=== PATIENT | male | born 1955 | race Caucasian/White ===

== ENCOUNTER 2017-07-19 17:17 | Inpatient (IN) | payer BC ==
[~2017-07-19] VITALS: Ht 188 cm; Wt 69.7 kg
[2017-07-19] MEDS ORDERED: ZOLOFT 50MG50 MG PO (18:39)
[2017-07-19] MEDS ORDERED: ZOVIRAX400 MG PO (18:40)
[2017-07-19] MEDS ORDERED: LEVSIN 0.10.125 MG/T PO (18:41)
[2017-07-19 19:04] LABS: BASO # 0.1 (0.0-0.2); BASO % 0.4 % (0.0-2.0); EOS % 0.1 % (0-4.0); GRAN # 11.2 (1.4-6.5); HEMATOCRIT 46.6 % (42.0-52.0); HEMOGLOBIN 15.6 g/dl (13.5-18.0); LYMPH # 0.9 (1.2-3.4); LYMPH % 6.9 % (20.0-51.0); MEAN CELL VOLUME 93 fl (80.0-100.0); MEAN CORPUSCULAR HEMOGLOBIN 31 pg (27.0-31.0); MEAN CORPUSCULAR HGB CONC 34 g/dl (33.0-37.0); MEAN PLATELET VOLUME 9.9 fl (7.4-10.4); MONO # 0.8 (0.1-0.6); MONO % 6.2 % (1.7-9.3); PLATELET COUNT 342 K/mm3 (130-400); RED BLOOD COUNT 5.01 M/mm3 (4.20-5.60); REDCELL DISTRIBUTION WIDTH-CV 12.6 % (11.5-14.5)
[2017-07-19 19:15] LABS: ALBUMIN 4.9 gm/dL (3.5-5.0); CALCIUM 9.8 mg/dL (8.4-10.2); CREATININE, serum 0.96 mg/dL (0.66-1.25); POTASSIUM 4.3 mmol/L (3.4-5.0); TOTAL PROTEIN 7.7 gm/dL (6.4-8.2)
[2017-07-19 19:24] LABS: COLLECTION METHOD CLEAN CATCH
[2017-07-19 19:34] LABS: MUCOUS Present /lpf; PH 5 (5-8); SQUAMOUS EPITHELIAL 0-2 /hpf; URINE APPEARANCE Hazy; URINE BACTERIA None Seen /hpf; URINE BILIRUBIN Negative (NEGATIVE); URINE BLOOD Negative (NEGATIVE); URINE COLOR Yellow; URINE GLUCOSE Negative (NEGATIVE); URINE KETONE 1+ (NEGATIVE); URINE LEUKOCYTE ESTERASE Negative (NEGATIVE); URINE NITRATE Negative (NEGATIVE); URINE PROTEIN(semi-quant) 2+ (NEGATIVE); URINE RBC 0-2 /hpf; URINE UROBILINOGEN Negative (NEGATIVE)
[2017-07-19 23:15] VITALS: BP 110/72; PULSE 62
[2017-07-19 23:30] VITALS: BP 122/68; PULSE 58
[2017-07-19 23:45] VITALS: BP 111/59
[2017-07-20] VITALS (10 sets, daily range): BP systolic 104–122; BP diastolic 52–73; PULSE 58–81; TEMP 98.2–98.5
[2017-07-20 06:45] LABS: HEMATOCRIT 36.4 % (42.0-52.0); HEMOGLOBIN 12.4 g/dl (13.5-18.0)
[2017-07-20 06:56] LABS: CALCIUM 8.6 mg/dL (8.4-10.2); CREATININE, serum 0.87 mg/dL (0.66-1.25); POTASSIUM 4.4 mmol/L (3.4-5.0)
[2017-07-21 02:12] VITALS: BP 105/60; PULSE 73; TEMP 98.3
[2017-07-21 05:21] VITALS: BP 95/56; PULSE 72; TEMP 98.5
[2017-07-21 09:11] LABS: BASO # 0.1 (0.0-0.2); BASO % 0.8 % (0.0-2.0); EOS # 0.2 (0.0-0.7); EOS % 1.9 % (0-4.0); GRAN % 69.7 % (42.2-75.2); LYMPH # 1.4 (1.2-3.4); LYMPH % 13.7 % (20.0-51.0); MEAN CELL VOLUME 95 fl (80.0-100.0); MEAN CORPUSCULAR HGB CONC 33 g/dl (33.0-37.0); MEAN PLATELET VOLUME 10.5 fl (7.4-10.4); MONO # 1.4 (0.1-0.6); MONO % 13.7 % (1.7-9.3); RED BLOOD COUNT 3.81 M/mm3 (4.20-5.60); REDCELL DISTRIBUTION WIDTH-CV 12.8 % (11.5-14.5)
[2017-07-21 09:13] LABS: HEMATOCRIT 36.1 % (42.0-52.0); HEMOGLOBIN 11.9 g/dl (13.5-18.0); MEAN CORPUSCULAR HEMOGLOBIN 31 pg (27.0-31.0); PLATELET COUNT 235 K/mm3 (130-400)
[2017-07-21 09:20] LABS: ALBUMIN 3.1 gm/dL (3.5-5.0); CALCIUM 8.4 mg/dL (8.4-10.2); CREATININE, serum 1.02 mg/dL (0.66-1.25); PHOSPHOROUS 2.5 mg/dL (2.5-4.5); POTASSIUM 4.2 mmol/L (3.4-5.0)
[2017-07-21 09:27] VITALS: BP 118/65; PULSE 64; TEMP 97
[2017-07-21 14:00] VITALS: BP 122/61; PULSE 56; TEMP 97.8
[2017-07-21 18:00] VITALS: BP 98/50; PULSE 70; TEMP 97.4
[2017-07-21 21:15] VITALS: BP 99/58; PULSE 56; TEMP 97.9
[2017-07-22 05:40] VITALS: BP 122/70; PULSE 57; TEMP 97.2
[2017-07-22 06:28] LABS: BASO # 0.1 (0.0-0.2); BASO % 0.8 % (0.0-2.0); EOS # 0.4 (0.0-0.7); EOS % 6.1 % (0-4.0); GRAN # 4.6 (1.4-6.5); GRAN % 71.8 % (42.2-75.2); LYMPH # 0.6 (1.2-3.4); LYMPH % 9.6 % (20.0-51.0); MEAN CELL VOLUME 94 fl (80.0-100.0); MEAN CORPUSCULAR HGB CONC 33 g/dl (33.0-37.0); MEAN PLATELET VOLUME 10.4 fl (7.4-10.4); MONO # 0.7 (0.1-0.6); MONO % 11.5 % (1.7-9.3); PLATELET COUNT 203 K/mm3 (130-400); RED BLOOD COUNT 3.68 M/mm3 (4.20-5.60); REDCELL DISTRIBUTION WIDTH-CV 12.5 % (11.5-14.5)
[2017-07-22 06:34] LABS: HEMATOCRIT 34.6 % (42.0-52.0); HEMOGLOBIN 11.5 g/dl (13.5-18.0); MEAN CORPUSCULAR HEMOGLOBIN 31 pg (27.0-31.0)
[2017-07-22 06:41] LABS: ALBUMIN 2.9 gm/dL (3.5-5.0); CALCIUM 8.6 mg/dL (8.4-10.2); CREATININE, serum 0.9 mg/dL (0.66-1.25); PHOSPHOROUS 3.4 mg/dL (2.5-4.5)
[2017-07-22 09:32] VITALS: BP 115/69; PULSE 79; TEMP 98.2
[2017-07-22] MEDS ORDERED: COLACE 100100 MG/CAP PO (10:00)
[2017-07-22] MEDS ORDERED: TYLENOL 500MG500 MG PO (10:01)
[2017-07-22] MEDS ORDERED: NEURONTIN100 MG/CAP PO (10:01)
[2017-07-22] MEDS ORDERED: ROXICODONE 55 MG/TAB PO (10:02)
[2017-07-22] MEDS ORDERED: MOTRIN 600600 MG/TAB PO (10:02)
== END 2017-07-22 14:05 | disposition home or self-care (01) | DRG 330 ==
LOC: COL.ER 17:17 → SURG 20:14
PROVIDERS: Emergency Medicine; Surgery
PROC: 0DNB0ZZ Release Ileum, Open Approach (ICD-10-PCS; 2017-07-19)
PROC: 0DNL0ZZ Release Transverse Colon, Open Approach (ICD-10-PCS; 2017-07-19)
PROC: 0DTF0ZZ Resection of Right Large Intestine, Open Approach (ICD-10-PCS; principal; 2017-07-19 21:00)
DX: K56.2 Volvulus (principal); Z68.1 Body mass index [BMI] 19.9 or less, adult; D64.9 Anemia, unspecified; K66.0 Peritoneal adhesions (postprocedural) (postinfection); R63.6 Underweight
CPT/HCPCS: A4314; A4315; A9284; J0330; J0694; J1100; J1170; J1650; J1885; J2250; J2405; J2704; J2710; J2795; J3010; J7042; J7050; J7120; Q9967